=== PATIENT | female | born 1980 | race Asian ===

== ENCOUNTER 2024-04-11 19:43 | Emergency (ER) | payer MEDICARE, BC, SELFPAY ==
[2024-04-11 19:48] VITALS: BP 134/74; PULSE 76; RESP 18; TEMP 37.3; O2SAT 98; BMI 34.7
--- NOTE | 2024-04-11 20:05 | CRLHL7_ITS ---
For Patients: As a result of the Century Cures Act, medical imaging exams and procedure reports are released immediately into your electronic medical record. You may view this report before your referring provider. If you have questions, please contact your health care provider. INDICATION: Abnormal vaginal bleeding in early . TECHNIQUE: Transvaginal limited obstetric ultrasound examination of the pelvis was performed. Grayscale and color Doppler images were obtained. COMPARISON: None. FINDINGS: Uterus: Normal in echotexture. No suspicious masses. Endometrium: No significant endometrial free fluid. Intrauterine gestation: No intrauterine gestation identified. Right Ovary: Measures 3.2 x 1.0 x 1.6 cm. Right corpus luteal cyst measuring 1.6 cm. Normal arterial and venous flow on color Doppler imaging. Left ovary: Measures 2.0 x 1.1 x 2.1 cm. No suspicious masses. Normal arterial and venous flow on color Doppler imaging. Cul-de-sac: No free fluid. IMPRESSION: No intrauterine gestation identified. It may be too early for an intrauterine to be visualized sonographically. Advised continued obstetrical evaluation, serial beta HCG and repeat pelvic ultrasound in 10-14 days. Dictated by Jeff Ayala MD @ 04/11/2024 10:04:47 PM (Electronically Signed)
--- NOTE | 2024-04-11 20:20 | ED_ITS ---
HPI - General Adult General Date Seen: 04/11/24 <Tsering Doll MD - Last Filed: 04/15/24 08:36> Chief complaint: Vaginal Bleeding <Tsering Doll MD - Last Filed: 04/15/24 08:36> Stated complaint: vaginal bleeding 6 wks <Tsering Doll MD - Last Filed: 04/15/24 08:36> Time Seen by Provider: 04/11/24 20:06 <Tsering Doll MD - Last Filed: 04/15/24 08:36> Source: patient <Tsering Doll MD - Last Filed: 04/15/24 08:36> Mode of arrival: ambulatory <Tsering Doll MD - Last Filed: 04/15/24 08:36> Limitations: no limitations <Tsering Doll MD - Last Filed: 04/15/24 08:36> History of Present Illness HPI narrative: Patient is a 44-year-old woman who presents for evaluation of vaginal bleeding. She notes that she is 6 weeks by LMP. This is a desired . She started having a little spotting tonight, was not going to come in, had talked to her clinic and they rescheduled her ultrasound, moved it up to , but then the triage line told her she should really be seen tonight. She does not have significant abdominal pain but does have a little bit of cramping. She passed a clot which she brought with her which is perhaps a quarter of a tsp of clotted blood. She is continuing to have a little bit of bleeding, less than a period but enough that she is wearing a pad. She denies any trauma, she is a , had gestational diabetes with her last but otherwise denies complications. She was formerly a residential carpenter. She does not smoke or drink. <Tsering Doll MD - Last Filed: 04/15/24 08:36> Related Data Home medications: Home Medications ?Medication ?Instructions ?Recorded ?Confirmed docosahexaenoic acid PO 04/11/24 levothyroxine 125 mcg tablet 125 mcg feeding tube DAILY 04/11/24 04/11/24 (Synthroid) <Tsering Doll MD - Last Filed: 04/15/24 08:36> Allergies/adverse reactions: Allergies Allergy/AdvReac Type Severity Reaction Status Date / Time No Known Drug Allergies Allergy Verified 04/11/24 19:53 <Tsering Doll MD - Last Filed: 04/15/24 08:36> Review of Systems Status of ROS: Reports: 10 or more systems reviewed and unremarkable except as noted in History and below <Tsering Doll MD - Last Filed: 04/15/24 08:36> [facility] Social History: Social History Smoking Status: Never smoker How often do you have a drink containing alcohol: never AUDIT-C Alcohol total score: 0 Non-prescribed substance use: denies use <Tsering Doll MD - Last Filed: 04/15/24 08:36> Exam Narrative: Exam Narrative: Vital signs as noted above. In general, an alert, well-appearing patient. Head: Normocephalic, atraumatic. Eyes: Pupils are equal reactive. Extraocular movements are full. Conjunctivae are normal. ENT: Mucous membranes are moist. Neck: Supple without lymphadenopathy. Heart: Regular rate and rhythm. No murmur or rub. Lungs: Clear bilaterally. No increased work of breathing, crackles or wheezes. Abdomen: Soft and nontender. No organomegaly. Extremities: Well perfused. No edema. No calf tenderness. Pulses intact. Neurologic: Patient is alert and oriented to person and place. Speech is fluent. Face is symmetric. Moves all extremities equally. Affect: Normal. Skin: Warm and dry. Well perfused. <Tsering Doll MD - Last Filed: 04/15/24 08:36> Const: Vital Signs, click to edit/add: Vital Signs - 24 hr 04/11/24 19:48 Temperature 99.1 F Pulse Rate [Pulse Oximeter] 76 Respiratory Rate 18 Blood Pressure [Ri ght Upper Arm] 134/74 Pulse Oximetry 98 Oxygen Delivery Me thod Room Air <Tsering Doll MD - Last Filed: 04/15/24 08:36> Vital Signs, click to edit/add: Vital Signs - 24 hr 04/11/24 19:48 Temperature 99.1 F Pulse Rate [Pulse Oximeter] 76 Respiratory Rate 18 Blood Pressure [Ri ght Upper Arm] 134/74 Pulse Oximetry 98 Oxygen Delivery Me thod Room Air <Danny Cunningham MD - Last Filed: 04/11/24 22:32> Documenting provider has reviewed patient's vital signs: yes <Tsering Doll MD - Last Filed: 04/15/24 08:36> Course Course ED Course: Plan at this time will be to check a hemoglobin, quant hCG, blood type. Pelvic ultrasound ordered to evaluate for intrauterine and try to rule out ectopic . IV placed. She is hemodynamically stable at this time. She has not had further significant bleeding, continues to have some spotting. Her hemoglobin is 13. White count is normal at 8. Quant HCG is 1174, she does tell me that it was 1800 when checked yesterday so this appears to be falling. Preliminary report on her ultrasound is that the ovaries with normal, there is no free fluid or evidence for ectopic but no evidence of an intrauterine . There is a corpus luteum cyst on the right. Final radiology read is pending. I have discussed this with her, this likely represents a loss. She is tearful but otherwise okay. Will await final radiology read. She believes that her blood type is B positive but this is still pending, just confirm that she is Rh positive. She should be seen in a couple of days for another quant HCG at her regular clinic. Anticipate that she will continue to have some bleeding and cramping. For severe pain, heavy bleeding, fevers or other worsening return to the emergency department. <Tsering Doll MD - Last Filed: 04/15/24 08:36> Reevaluation(s) Reevaluation #1: Patient signed out to Dr. Cunningham at shift change-10:00 p.m. he will follow up on outstanding radiology read from the pelvic ultrasound and on the patient's Rh type. Patient's blood type is B positive. Pelvic ultrasound IMPRESSION: No intrauterine gestation identified. It may be too early for an intrauterine to be visualized sonographically. Advised continued obstetrical evaluation, serial beta HCG and repeat pelvic ultrasound in 10-14 days. Results are as expected at the time of sign-out. Patient can be discharged as per Dr. Doll's plan <Danny Cunningham MD - Last Filed: 04/11/24 22:32> Vital Signs Vital signs: Initial Vital Signs Temperature 99.1 F 04/11/24 19:48 Temperature Source Temporal Artery Scan 04/11/24 19:48 Pulse Rate 76 04/11/24 19:48 Respiratory Rate 18 04/11/24 19:48 Blood Pressure 134/74 04/11/24 19:48 Blood Pressure Mean 94 04/11/24 19:48 Blood Pressure Position Sitting 04/11/24 19:48 Pulse Oximetry 98 04/11/24 19:48 Oxygen Delivery Method Room Air 04/11/24 19:48 Vital Signs Temperature 99.1 F 04/11/24 19:48 Pulse Rate 76 04/11/24 19:48 Respiratory Rate 18 04/11/24 19:48 Blood Pressure 134/74 04/11/24 19:48 Pulse Oximetry 98 04/11/24 19:48 Oxygen Delivery Method Room Air 04/11/24 19:48 Temperature 99.1 F 04/11/24 22:53 Pulse Rate 76 04/11/24 22:53 Respiratory Rate 18 04/11/24 22:53 Blood Pressure 134/74 04/11/24 22:53 Pulse Oximetry 98 04/11/24 19:48 Oxygen Delivery Method Room Air 04/11/24 19:48 <Tsering Doll MD - Last Filed: 04/15/24 08:36> Initial Vital Signs Temperature 99.1 F 04/11/24 19:48 Temperature Source Temporal Artery Scan 04/11/24 19:48 Pulse Rate 76 04/11/24 19:48 Respiratory Rate 18 04/11/24 19:48 Blood Pressure 134/74 04/11/24 19:48 Blood Pressure Mean 94 04/11/24 19:48 Blood Pressure Position Sitting 04/11/24 19:48 Pulse Oximetry 98 04/11/24 19:48 Oxygen Delivery Method Room Air 04/11/24 19:48 Vital Signs Temperature 99.1 F 04/11/24 19:48 Pulse Rate 76 04/11/24 19:48 Respiratory Rate 18 04/11/24 19:48 Blood Pressure 134/74 04/11/24 19:48 Pulse Oximetry 98 04/11/24 19:48 Oxygen Delivery Method Room Air 04/11/24 19:48 Temperature 99.1 F 04/11/24 22:53 Pulse Rate 76 04/11/24 22:53 Respiratory Rate 18 04/11/24 22:53 Blood Pressure 134/74 04/11/24 22:53 Pulse Oximetry 98 04/11/24 19:48 Oxygen Delivery Method Room Air 04/11/24 19:48 <Danny Cunningham MD - Last Filed: 04/11/24 22:32> Medical Decision Making Lab Data Labs: Lab Results 04/11/24 04/11/24 Range/Units 19:40 20:30 WBC 8.07 (4.50-11.00) K/uL RBC 4.55 (4.00-5.20) m/uL Hgb 13.0 (12.0-16.0) gm/dL Hct 39.4 (33.0-51.0) % MCV 87 (80-100) fL MCH 29 (26-34) pg MCHC 33 (32-36) gm/dL RDW Coeff of [place] 14.3 (11.5-15.5) % Plt Count 273 (140-440) K/uL Neut % (Auto) 54.4 (42.0-72.0) % Lymph % (Auto) 34.2 (20-44) % [place] % (Auto) 8.2 (0.0-11.0) % Eos % (Auto) 2.7 (0.0-7.0) % Baso % (Auto) 0.4 (0.0-3.0) % Neut # (Auto) 4.39 (1.7-7.0) K/uL Lymph # (Auto) 2.76 (0.90-2.90) K/uL [place] # (Auto) 0.70 (0.00-0.90) K/UL Eos # (Auto) 0.22 (0.00-0.50) K/uL Baso # (Auto) 0.03 (0.00-0.30) K/uL Abs Immat Gran (auto) 0.01 (0.00-0.30) K/uL Imm/Tot Granulo (auto) 0.1 % HCG, Quant 1174.50 mIU/mL Urine Color Yellow (Yellow) Urine Appearance Clear (Clear) Urine pH 7.0 (5.0-8.5) Ur Specific [place] 1.015 (1.000-1.030) Urine Protein Negative (Negative) Urine Glucose (UA) Negative (Negative) Urine Ketones Negative (Negative) Urine Blood Trace-intact A (Negative) Urine Nitrite Negative (Negative) Urine Bilirubin Negative (Negative) Urine Urobilinogen 0.2 (0.2-1.0) Ur Leukocyte Esterase Negative (Negative) Urine RBC 0-2 (0-2) Urine WBC 0-2 (0-5) Ur Squamous Epith Cells None (None-Few) Urine Bacteria None (None) Blood Type B Positive Antibody Screen NEGATIVE <Tsering Doll MD - Last Filed: 04/15/24 08:36> Lab Results 04/11/24 04/11/24 Range/Units 19:40 20:30 WBC 8.07 (4.50-11.00) K/uL RBC 4.55 (4.00-5.20) m/uL Hgb 13.0 (12.0-16.0) gm/dL Hct 39.4 (33.0-51.0) % MCV 87 (80-100) fL MCH 29 (26-34) pg MCHC 33 (32-36) gm/dL RDW Coeff of [place] 14.3 (11.5-15.5) % Plt Count 273 (140-440) K/uL Neut % (Auto) 54.4 (42.0-72.0) % Lymph % (Auto) 34.2 (20-44) % [place] % (Auto) 8.2 (0.0-11.0) % Eos % (Auto) 2.7 (0.0-7.0) % Baso % (Auto) 0.4 (0.0-3.0) % Neut # (Auto) 4.39 (1.7-7.0) K/uL Lymph # (Auto) 2.76 (0.90-2.90) K/uL [place] # (Auto) 0.70 (0.00-0.90) K/UL Eos # (Auto) 0.22 (0.00-0.50) K/uL Baso # (Auto) 0.03 (0.00-0.30) K/uL Abs Immat Gran (auto) 0.01 (0.00-0.30) K/uL Imm/Tot Granulo (auto) 0.1 % HCG, Quant 1174.50 mIU/mL Urine Color Yellow (Yellow) Urine Appearance Clear (Clear) Urine pH 7.0 (5.0-8.5) Ur Specific [place] 1.015 (1.000-1.030) Urine Protein Negative (Negative) Urine Glucose (UA) Negative (Negative) Urine Ketones Negative (Negative) Urine Blood Trace-intact A (Negative) Urine Nitrite Negative (Negative) Urine Bilirubin Negative (Negative) Urine Urobilinogen 0.2 (0.2-1.0) Ur Leukocyte Esterase Negative (Negative) Urine RBC 0-2 (0-2) Urine WBC 0-2 (0-5) Ur Squamous Epith Cells None (None-Few) Urine Bacteria None (None) Blood Type B Positive Antibody Screen NEGATIVE <Danny Cunningham MD - Last Filed: 04/11/24 22:32> Discharge Plan Discharge Clinical Impression: Threatened <Tsering Doll MD - Last Filed: 04/15/24 08:36> Patient Disposition: Home, Self-Care <Tsering Doll MD - Last Filed: 04/15/24 08:36> Condition: Stable <Tsering Doll MD - Last Filed: 04/15/24 08:36> Instructions: Threatened Miscarriage (ED) <Tsering Doll MD - Last Filed: 04/15/24 08:36> Additional Instructions: Ibuprofen or Tylenol if needed. You will likely continue to have cramping and bleeding over the next couple of days. You should be seen in 2 days for repeat quant HCG. Please follow-up with your regular clinic for that. If at any time you have heavy bleeding, for example bleeding through a thick pad once an hour for more than 2 hours, if you have severe pain, fevers or other worsening, return to the ER. <Tsering Doll MD - Last Filed: 04/15/24 08:36> Prescriptions: No Action levothyroxine [Synthroid] 125 mcg tablet 125 mcg feeding tube DAILY docosahexaenoic acid [ DHA] PO <Tsering Doll MD - Last Filed: 04/15/24 08:36> Follow Up/Referrals: Provider,Not a Local [Primary Care Provider] - <Tsering Doll MD - Last Filed: 04/15/24 08:36> Stand Alone Forms: [facility] Info Instructions <Tsering Doll MD - Last Filed: 04/15/24 08:36>
[2024-04-11 20:45] LABS: Basophils Absolute Auto 0.03 K/uL (0.00-0.30); Basophils Percent Auto 0.4 % (0.0-3.0); Eosinophils Absolute Auto 0.22 K/uL (0.00-0.50); Eosinophils Percent Auto 2.7 % (0.0-7.0); Hematocrit 39.4 % (33.0-51.0); Immature Granulocytes Abs Auto 0.01 K/uL (0.00-0.30); Immature Granulocytes Pct Auto 0.1 %; Lymphocytes Absolute Auto 2.76 K/uL (0.90-2.90); Lymphocytes Percent Auto 34.2 % (20-44); Mean Corpuscular HGB Conc 33 gm/dL (32-36); Mean Corpuscular Hemoglobin 29 pg (26-34); Mean Corpuscular Volume 87 fL (80-100); Monocytes Percent Auto 8.2 % (0.0-11.0); Neutrophils Absolute Auto 4.39 K/uL (1.7-7.0); Neutrophils Percent Auto 54.4 % (42.0-72.0); Platelet Count* 273 K/uL (140-440); RDW Coefficient of Variation % 14.3 % (11.5-15.5); Red Blood Count 4.55 m/uL (4.00-5.20); White Blood Count* 8.07 K/uL (4.50-11.00)
[2024-04-11 20:46] LABS: Slide Review Reflex No
[2024-04-11 20:57] LABS: Appearance Urine Clear (Clear); Bilirubin Urine Negative (Negative); Blood Urine Trace-intact (Negative); Color Urine Yellow (Yellow); Glucose Urine Negative (Negative); Ketones Urine Negative (Negative); Leukocyte Esterase Urine Negative (Negative); Nitrite Urine Negative (Negative); Protein Urine Negative (Negative); Specific Gravity Urine 1.015 (1.000-1.030); Urobilinogen Urine 0.2 (0.2-1.0)
[2024-04-11 22:00] LABS: RBC Urine 0-2 (0-2); WBC Urine 0-2 (0-5)
[2024-04-11 22:53] VITALS: BP 134/74; PULSE 76; RESP 18; TEMP 37.3
== END 2024-04-11 22:54 | disposition home or self-care (01) ==
PROVIDERS: Emergency Provider Emergency Medicine
DX: O20.0 Threatened abortion (principal)
CPT/HCPCS: 36415; 76817; 81001; 84702; 85025; 86850; 86900; 86901; 99283; 99284